=== PATIENT | female | born 1990 | race Caucasian/White ===

== ENCOUNTER 2023-07-04 14:11 | Emergency (ER) | payer OTHER, SELFPAY ==
[2023-07-04 14:12] VITALS: BP 127/71; PULSE 69; RESP 14; TEMP 36.8; O2SAT 100; BMI 24.7
--- NOTE | 2023-07-04 14:17 | RAD_ITS ---
EXAM: XR LEFT FINGERS, 2 OR MORE VIEWS CLINICAL INDICATION: thumb pain TECHNIQUE: Frontal, lateral and oblique views of the fingers of the left hand. COMPARISON: No relevant prior studies available. FINDINGS: BONES/JOINTS: Comminuted nondisplaced intra-articular fracture involves the first distal phalanx. No subluxation deformity. SOFT TISSUES: Soft tissue swelling is present. No radiopaque foreign body. RAD/Finger(s) Min 2 Views IMPRESSION: Acute fracture of the first distal phalanx Electronically Signed: Vincent Krishnamurthy MD at 15:10 EST ,
--- NOTE | 2023-07-04 14:19 | EDS_ITS ---
HPI <DUNCAN Mac - Last Filed: 07/04/23 15:29> History of Present Illness Chief Complaint: Upper Extremity Injury Narrative Narrative: Patient presenting today with pain to her left thumb from an injury that occurred today. She reports that she was going down a slide when she stubbed her thumb. She is concerned that it could be fractured. She denies any other injury. She is right-handed. [facility] <DUNCAN Mac - Last Filed: 07/04/23 15:29> [facility] Medical History (Updated 07/04/23 @ 15:26 by DUNCAN Mac) Right ACL tear Allergy/AdvReac Type Severity Reaction Status Date / Time No Known Allergies Allergy Verified 07/04/23 14:11 Family History no significant family his Social History (Updated 07/04/23 @ 14:34 by Shruthi Maxwell) household members: spouse, family and children housing: house Smoking Status: Never smoker ROS <DUNCAN Mac - Last Filed: 07/04/23 15:29> ROS ED Constitutional Constitutional ED: Denies chills or fever(s) Cardiovascular Cardiovascular: Denies chest pain Respiratory/Chest Respiratory/Chest: Denies cough or dyspnea Gastrointestinal Gastrointestinal: Denies abdominal pain, nausea or vomiting Musculoskeletal Musculoskeletal: Reports arthralgias; Denies myalgias Integumentary Denies Abrasions Neurologic Neurologic: Denies paresthesias or weakness EXAM <DUNCAN Mac - Last Filed: 07/04/23 15:29> Physical Exam Const Vital Signs: 07/04/23 14:12 Temperature 98.2 F Temperature Source Temporal Pulse Rate 69 Respiratory Rate 14 Blood Pressure 127/71 H Blood Pressure Mean 89 Pulse Ox 100 Oxygen Delivery Method Room Air Positive well nourished, well developed and no apparent distress General Appearance ED: well developed HEENT Reports normocephalic and head/scalp atraumatic Mouth ED: Yes moist mucous membranes normal Eyes PERRL and EOMs intact bilaterally Neck full ROM and supple Chest Wall inspection of chest normal Resp normal respiratory effort and clear to auscultation bilaterally Cardio regular rate and regular rhythm GI soft to palpation, non-tender, non-distended and no masses Back/Spine normal ROM and normal to inspection Extremity normal to inspection and full ROM Extremity Narrative: Pain, ecchymosis, and limited range of motion to the left IP joint. Full range of motion at the MCP, PIP, and DIP joints of the left hand. No snuffbox tenderness. Neuro oriented x3, CN's II-XII intact bilaterally, moves all extremities, no focal motor deficits and no sensory deficits noted Sensorium / Orientation: awake and alert Psych mental status grossly normal and thought process normal Skin no rashes or lesions noted and no wounds [facility] <DUNCAN Mac - Last Filed: 07/04/23 15:29> [facility] Narrative Medical decision making narrative: Patient presenting today due to an injury to her left thumb. Pain, limited ROM at the left thumb at the IP joint. X-ray will be obtained. She will be given ibuprofen for pain. X-ray does show a fracture at the first distal phalanx. She has been given a thumb spica splint. She will be given RICE instructions and an orthopedic follow-up. She will be discharged home in stable condition and is comfortable with plan. <Dr. Miguelito Paulino MD - Last Filed: 07/04/23 15:35> [facility] Treatment and Re-Evaluation Narrative: I have personally performed a face to face assessment of the patient and have reviewed the RACHEAL Note. I performed a substantive portion of the visit including all aspects of the following. My ho findings include: History is was going down a slide and had her hand/arm abducted at her side when using it to try to slow her down/stop, and in the process jammed her thumb and has pain and swelling at the IPJ. Also has some pain in the left shoulder, points to the acromion from the exact same mechanism/injury. No numbness or tingling or other injury. Exam is limited range of motion at the IPJ of the left thumb but all tendon function intact. There is some mild tenderness and swelling at the IPJ only. No nail or nailbed injury. No other hand or wrist injury. No significant shoulder tenderness except for mildly at the posterior aspect of the bony acromion, there is no crepitance or deformity. She is full range of motion of the shoulder. There is no acromioclavicular joint tenderness or any other bony tenderness or swelling. Medical Decison Making shoulder injury does not require x-rays, there is no direct trauma and she is not dislocated and has full range of motion. She is in agreement. X-rays of the thumb 3 views on my interpretation shows intraarticular fracture of the base of the distal phalanx. It is closed. I supervised finger splinting, NVID afterwards - to f/u with ortho. Will have her see gen ortho locally first to screen for need for further referral. Other additions or changes: [None] Discharge Plan Triage Chief Complaint: Upper Extremity Injury ED Midlevel Provider: Nory Knowles ED Provider: Miguelito Paulino Dx/Rx/DC Orders Clinical Impression: Fracture of thumb Instructions: ED Fracture, Thumb Primary Care Provider: Care Physician,No Primary Referrals: Giovanni Alcantar DO [Med Staff - Active Staff] - 1 Week Care Physician,No Primary [Primary Care Provider] - Activity Restrictions/Additional Instructions: Ice your thumb 10 to 15 minutes at a time 3-4 times a day for the next few days. Alternate Tylenol and ibuprofen for your pain as needed. Disposition Disposition: Home, Self Care
[2023-07-04] MEDS: Ibuprofen 200 MG Tablet 400 MG PO (14:29)
[2023-07-04 15:44] VITALS: PULSE 62; RESP 14
== END 2023-07-04 15:45 | disposition home or self-care (01) ==
PROVIDERS: Emergency Provider Emergency Medicine; Visit Provider Emergency Medicine
DX: S62.502A Fracture of unspecified phalanx of left thumb, initial encounter for closed fracture (principal); X58.XXXA Exposure to other specified factors, initial encounter
CPT/HCPCS: 73140; 99283

== ENCOUNTER 2024-05-10 13:47 | Emergency (ER) | payer OTHER, SELFPAY ==
[2024-05-10 13:48] VITALS: BP 103/71; PULSE 75; RESP 16; TEMP 36.6; O2SAT 100; BMI 22.4
[2024-05-10 15:30] VITALS: BP 105/78; PULSE 74; RESP 16
--- NOTE | 2024-05-10 15:30 | RAD_ITS ---
INDICATION: Syncope, fall, shoulder injury EXAMINATION/TECHNIQUE: X-RAY - LEFT XR Shoulder Min 2 Views 4 VIEWS COMPARISON: None. FINDINGS: SOFT TISSUES: No soft tissue swelling or gas. No radiopaque foreign body. BONES/JOINTS: No acute fracture. Joint spaces anatomically aligned. No sclerotic or destructive changes observed. RAD/Shoulder min 2 Views IMPRESSION: No acute bony injury. Electronically Signed: Keagan Caceres MD at 17:35 EST ,
--- NOTE | 2024-05-10 15:31 | RAD_ITS ---
INDICATION: syncope EXAMINATION/TECHNIQUE: X-RAY - XR Chest 2 Views COMPARISON: None. FINDINGS: LINES/DEVICES: None. LUNGS: No consolidation, edema or effusion. No pneumothorax. MEDIASTINUM AND CARDIOVASCULAR STRUCTURES: Cardiac silhouette not enlarged. Central airways and mediastinal contour are unremarkable. BONES AND SOFT TISSUES: Unremarkable. RAD/Chest PA and Lateral IMPRESSION: No radiographic evidence of acute cardiopulmonary disease. Electronically Signed: Keagan Caceres MD at 17:34 EST ,
--- NOTE | 2024-05-10 15:34 | EDS_ITS ---
HPI History of Present Illness Chief Complaint: Head Injury Informant: patient Narrative Narrative: 34-year-old female presenting to the emergency room with head injury. Patient states that this weekend she was walking and developed lower abdominal cramping. She states she had a syncopal episode and struck her head and anterior left shoulder on an end table. She states that she came to after about a minute. She notes abrasion to the forehead swelling is developed bruising over the inferior aspect of both eyes. She notes some occipital headache and neck soreness. She notes soreness both front and back of the left shoulder. She states that she has had prior syncope due to her periods in the past but she is not on her period. She is currently breast-feeding. Patient denies any preceding chest pain palpitations or dyspnea. She called her primary care doctor and was referred to emergency for evaluation. [facility] Medical History Right ACL tear Allergy/AdvReac Type Severity Reaction Status Date / Time No Known Allergies Allergy Verified 05/10/24 13:51 Social History household members: spouse, family and children housing: house Smoking Status: Never smoker ROS [facility] ED Constitutional Constitutional ED: Denies chills, fever(s) or weight loss Eyes Eyes: Denies change in vision or diplopia ENT ENT ED: Denies ear pain, rhinorrhea or sore throat Cardiovascular Cardiovascular: Reports other Details: Syncope ; Denies chest pain, orthopnea, palpitations or racing heartbeat Respiratory/Chest Respiratory/Chest: Denies cough, dyspnea or orthopnea Gastrointestinal Gastrointestinal: Denies abdominal pain, diarrhea, nausea or vomiting Genitourinary Genitourinary ED: Denies dysuria, hematuria or urinary frequency Musculoskeletal Musculoskeletal: Reports neck pain and other Details: Left shoulder pain ; Denies arthralgias or myalgias Integumentary Denies abscess or rash Neurologic Neurologic: Reports headache(s); Denies weakness Psychiatric Psychiatric: Denies anxiety, depression, suicidal ideation or suicidal thoughts Endocrine Endocrinology: Denies polydipsia, polyphagia or polyuria Allergic/Immunologic Allergic/Immunologic ED: Denies mouth swelling, tongue swelling or urticaria EXAM Physical Exam Const Vital Signs: 05/10/24 13:48 05/10/24 15:30 05/10/24 15:55 Temperature 97.9 F Temperature Source Temporal Pulse Rate 75 74 Respiratory Rate 16 16 Respiratory Effort Normal Non-Labored Respiratory Depth Normal Respiratory Pattern Normal Blood Pressure 103/71 105/78 Blood Pressure Mean 81 87 Pulse Ox 100 Oxygen Delivery Method Room Air Room Air Positive well nourished and well developed General Appearance ED: well developed and NAD HEENT Reports normocephalic and moist mucous membranes HEENT Narrative: There are 2 linear angular abrasions to the mid right forehead. There is associated hematoma. There is infraorbital ecchymosis that is purpleish/blue present. No midface instability. No malocclusion or dental trauma. Eyes PERRL and EOMs intact bilaterally Neck full ROM, no lymphadenopathy, supple and no JVD Neck Narrative: Neck is generally tender to palpation. Painful range of motion. Resp normal respiratory effort and clear to auscultation bilaterally Cardio regular rate, regular rhythm and no murmurs GI normal to inspection, nondistended, normoactive bowel sounds and non-tender Palpation: soft Back/Spine no CVA tenderness and normal ROM Extremity Extremity Narrative: Left shoulder demonstrates no significant deformity or dislocation. No significant ecchymosis is noted. Mild tenderness to palpation anteriorly as well as posteriorly of the shoulder joint. Neurovascular intact distal. General Extremety ED: Negative for edema General Extremity: Negative for edema Neuro oriented x3 and CN's II-XII intact bilaterally Sensorium / Orientation: alert Motor Exam: strength 5/5 throughout Psych mental status grossly normal Mood & Affect: Negative for depressed or tearful Skin no rashes or lesions noted and no wounds MDM MDM MDM Narrative Medical decision making narrative: Differential diagnosis includes but not limited to forehead abrasion hematoma concussion intracranial hemorrhage skull fracture occipital fracture shoulder fracture cardiogenic syncope vasovagal syncope anemia electrolyte abnormality Basic blood work will be obtained including test as well as EKG, chest x-ray, head CT cervical spine CT and shoulder imaging. Care of the patient will be turned over to the oncoming physician for check of labs and imaging and final disposition History & Record Review Discussion w/independent historian: Patient Lab Data Attestation: I reviewed the patient's lab results. EKG Initial EKG: Attestation: I personally reviewed and interpreted this EKG as follows: Comments: Normal sinus rhythm ventricular rate of 78 bpm Discharge Plan Triage Chief Complaint: Head Injury ED Provider: Carlos A Sloan Dx/Rx/DC Orders Clinical Impression: Vasovagal syncope, Acute cervical myofascial strain, Concussion, Traumatic hematoma of forehead, Contusion of left shoulder Instructions: ED Concussion, ED Neck Sprain or Strain, ED Fainting, Vagal Reaction Primary Care Provider: Care Physician,No Primary Referrals: Care Physician,No Primary [Primary Care Provider] - Print Language: Kinyarwanda
--- NOTE | 2024-05-10 15:57 | CT_ITS ---
INDICATION: Trauma, injury EXAMINATION: CT CERVICAL SPINE - CT Spine Cervical W/O Contrast Injection TECHNIQUE: Helically acquired images were obtained of the cervical spine. 2D reformatted images were reviewed. A radiation dose optimization technique was used for this scan. IV Contrast dosage and agent: None. COMPARISON: None. FINDINGS: VERTEBRAE: No acute fracture. No discrete lytic or blastic abnormality. Normal alignment. Normal craniocervical junction and cervicothoracic junction. DISCS and SPINAL CANAL: Disc heights are preserved. NECK SOFT TISSUES: No prevertebral soft tissue swelling. LUNG APICES: Clear. CT/Spine Cervical without Contras IMPRESSION: No acute bony injury. Electronically Signed: Keagan Caceres MD at 17:32 EST ,
--- NOTE | 2024-05-10 15:57 | CT_ITS ---
INDICATION: Trauma, injury EXAMINATION: CT BRAIN - CT Head or Brain W/O Contrast Injection TECHNIQUE: Multiple axial images were obtained of the head without intravenous contrast. A radiation dose optimization technique was used for this scan. IV Contrast dosage and agent: None. COMPARISON: None. FINDINGS: BRAIN PARENCHYMA: No intra- or extra-axial hemorrhage. No evidence of acute infarct. No intracranial mass or mass effect. There is preservation of the alexander/white matter interface. Posterior fossa structures are unremarkable. CSF SPACES: Appropriate for age. No hydrocephalus. Basal cisterns are patent. CALVARIUM, SKULL BASE, PARANASAL SINUSES AND MASTOID AIR CELLS: Clear. No discrete lytic or blastic abnormalities. ORBITS: Both globes, extraocular muscles, optic nerves and retrobulbar fat appear unremarkable. CT/Brain/Head without Contrast IMPRESSION: No acute intracranial findings. Electronically Signed: Keagan Caceres MD at 17:22 EST ,
[2024-05-10 16:25] LABS: Internal QC Validated? YES +Cl - CLEAR BKGD; Pregnancy, Serum, hCG Quali. NEGATIVE Negative; Record Kit Lot#, Serum Preg. 869294
[2024-05-10 17:00] VITALS: BP 112/77; PULSE 83; RESP 18
[2024-05-10 17:59] VITALS: BP 111/81; PULSE 80; RESP 18
== END 2024-05-10 18:06 | disposition home or self-care (01) ==
LOC: ED 16:21
PROVIDERS: Emergency Provider Emergency Medicine; Visit Provider Emergency Medicine
DX: S06.0X1A Concussion with loss of consciousness of 30 minutes or less, initial encounter (principal); S16.1XXA Strain of muscle, fascia and tendon at neck level, initial encounter; S40.012A Contusion of left shoulder, initial encounter; S00.83XA Contusion of other part of head, initial encounter; W22.8XXA Striking against or struck by other objects, initial encounter; R55 Syncope and collapse
CPT/HCPCS: 70450; 71046; 72125; 73030; 84703; 93005; 99283; A4216